=== PATIENT | female | born 1965 | race Caucasian/White ===

== ENCOUNTER 2023-10-21 14:53 | Emergency (ER) | payer OTHER ==
[~2023-10-21] VITALS: Ht 165.1 cm; Wt 90.7 kg
[2023-10-21 15:23] VITALS: BP 147/78; PULSE 72; RESP 18; TEMP 98.8; O2SAT 97
[2023-10-21] MEDS: KETOROLAC 30 MG/ML VIAL IM ONE (15:53)
[2023-10-21] MEDS ORDERED: LID5T TP (17:09)
[2023-10-21] MEDS ORDERED: DICL100G32 TP (17:09)
[2023-10-21] MEDS ORDERED: NAPR-1704 PO (17:09)
[2023-10-21 17:34] VITALS: BP 135/82; PULSE 88; RESP 16; TEMP 98; O2SAT 99
== END 2023-10-21 17:34 | disposition home or self-care (01) ==
LOC: MED 14:53
DX: M17.11 Unilateral primary osteoarthritis, right knee (principal); M25.762 Osteophyte, left knee; Z79.899 Other long term (current) drug therapy
CPT/HCPCS: 73562; 96372; 99283; J1885; Q0092

== ENCOUNTER 2023-12-04 18:35 | Emergency (ER) | payer MEDICAID, OTHER ==
[~2023-12-04] VITALS: Ht 162.6 cm; Wt 81.6 kg
[~2023-12-04 18:35] MED LIST: DICL100G32 TP; LID5T TP; NAPR-1704 PO
[2023-12-04 19:00] VITALS: BP 136/61; PULSE 78; RESP 18; TEMP 98.3; O2SAT 97
[2023-12-04 21:09] VITALS: BP 127/56; PULSE 75; RESP 18; TEMP 98.2; O2SAT 98
== END 2023-12-04 21:09 | disposition home or self-care (01) ==
LOC: MED 18:35
DX: T16.2XXA Foreign body in left ear, initial encounter (principal); Z79.1 Long term (current) use of non-steroidal anti-inflammatories (NSAID); Z79.899 Other long term (current) drug therapy; W44.F3XA Food entering into or through a natural orifice, initial encounter; Y93.89 Activity, other specified; Y92.89 Other specified places as the place of occurrence of the external cause; Y99.8 Other external cause status
CPT/HCPCS: 99284

== ENCOUNTER 2024-03-17 17:47 | Emergency (ER) | payer SELFPAY ==
[~2024-03-17] VITALS: Ht 162.6 cm; Wt 94.8 kg
[2024-03-17 18:19] VITALS: BP 141/78; PULSE 78; RESP 18; TEMP 97.8; O2SAT 95
[2024-03-17 18:29] VITALS: O2SAT 95
[2024-03-17 18:31] VITALS: TEMP 97.8
[2024-03-17 19:31] LABS: BASOPHILS # (AUTO) 0.1 K/uL (0.00-0.22); BASOPHILS % (AUTO) 0.8 % (0.0-2.0); EOSINOPHILS # (AUTO) 0.2 K/uL (0-0.4); EOSINOPHILS % (AUTO) 3.2 % (0.0-4.0); HEMATOCRIT 38.6 % (36-48); LYMPHOCYTES # (AUTO) 2.2 K/uL (2.5-16.5); LYMPHOCYTES % (AUTO) 28.4 % (20.5-51.1); MEAN CORPUSCULAR HEMOGLOBIN 31 pg (27-31); MEAN CORPUSCULAR HGB CONC 34 g/dL (33-37); MEAN CORPUSCULAR VOLUME 91.7 fL (80-94); MONOCYTES # (AUTO) 0.6 K/uL (0.8-1.0); MONOCYTES % (AUTO) 7.9 % (1.7-9.3); NEUTROPHILS # (AUTO) 4.6 K/uL (1.8-7.7); NEUTROPHILS % (AUTO) 59.7 % (42.2-75.2); PLATELET COUNT (AUTO) 259 K/uL (140-450); RED BLOOD CELL COUNT(AUTO) 4.21 MIL/uL (4.20-5.40); RED CELL DISTRIBUTION WIDTH 14.5 % (11.6-13.7); WHITE BLOOD COUNT (AUTO) 7.8 K/uL (4.8-10.8)
[2024-03-17 19:33] LABS: BILIRUBIN,URINE NEGATIVE (NEGATIVE); BLOOD, URINE 1+ (NEGATIVE); COLOR,URINE YELLOW (YELLOW); LEUKOCYTE ESTERASE ,URINE NEGATIVE (NEGATIVE); NITRITE, URINE POSITIVE (NEGATIVE); PROTEIN,URINE NEGATIVE (NEGATIVE); UGLUCOSE NEGATIVE (NEGATIVE); UROBILINOGEN,URINE 0.2 EU/dL (0.2 - 1)
[2024-03-17 19:38] LABS: APPEARANCE,URINE SLIGHTLY HAZY (CLEAR)
[2024-03-17 19:40] VITALS: BP 133/77; PULSE 75; RESP 16; O2SAT 99
[2024-03-17 19:41] LABS: BACTERIA,URINE 3+ /HPF (None Seen)
[2024-03-17 19:42] LABS: MUCUS,URINE 3+ /LPF (None Seen)
[2024-03-17 19:54] LABS: ALBUMIN 3.6 g/dL (3.4-5.0); ANION GAP 10.7 (8-16); CALCIUM 8.5 mg/dL (8.5-10.1); CARBON DIOXIDE 28.1 mmol/L (21-32); CREATININE 0.8 mg/dL (0.6-1.3); POTASSIUM 3.8 mmol/L (3.5-5.1); TOTAL BILIRUBIN 0.4 mg/dL (0.0-1.0)
[2024-03-17] MEDS ORDERED: cefTRIAXone 1,000 MG VIAL ONE (20:11)
[2024-03-17] MEDS ORDERED: LIDOCAINE MPF 1% 5 ML ONE (20:11)
[2024-03-17] MEDS: cefTRIAXone 1,000 MG in LIDOCAINE MPF 1% 2.1 ML IM ONE (20:12)
[2024-03-17] MEDS: KETOROLAC 30 MG/ML VIAL IM ONE (20:20)
[2024-03-17] MEDS ORDERED: IBUP-2213 PO (20:31)
[2024-03-17] MEDS ORDERED: CEPH-588 PO (20:31)
== END 2024-03-17 20:42 | disposition home or self-care (01) ==
LOC: MED 17:47
DX: N39.0 Urinary tract infection, site not specified (principal); Z79.899 Other long term (current) drug therapy
CPT/HCPCS: 36415; 80053; 81001; 81025; 83690; 85025; 87086; 93005; 96372; 99284; J0696; J1885; J2001